=== PATIENT | male | born 1980 | race Caucasian/White ===

== ENCOUNTER 2017-05-20 22:25 | Emergency (ER) | payer SELFPAY ==
[2017-05-20 22:33] VITALS: BP 132/90; PULSE 105; TEMP 97.8; BMI 44.7
--- NOTE | 2017-05-20 22:39 | PDOC ---
History of Present Illness - General Chief Complaint: Pain, Acute Stated Complaint: PAIN RIGHT ABDOMEN X 3 MONTHS Time Seen by Provider: 05/20/17 22:32 - History of Present Illness Initial Comments: This 36-year-old man, morbidly obese but without other medical issues, presents with exacerbation of right-sided abdominal pain. Patient states that he has had this pain intermittently for the last 3 months. Today, he lifted a several very heavy pieces of luggage while use helping someone leaving on vacation. He then noted the pain in the right mid abdomen. Subsequent to this, he did not notice change in the pain with movement or position. 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 No history of specific trauma to the area. He denies nausea/vomiting, fever/chills, constipation/diarrhea. He has not had hematuria/dysuria/urinary frequency. Past History - Past Medical History Allergies/Adverse Reactions: Allergies Allergy/AdvReac Type Severity Reaction Status Date / Time No Known Allergies Allergy Verified 05/20/17 22:26 Home Medications: Ambulatory Orders NK [No Known Home Medication] 05/20/17 Asthma: (CHILDHOOD) Other medical history: DENIES - Family Disease History Family Disease History: Diabetes: Father, Mother - Immunization History Immunization Up to Date: Yes - Psycho/Social/Smoking Cessation Hx Anxiety: No Suicidal Ideation: No Smoking Status: No Smoking History: Never smoked Have you smoked in the past 12 months: No Number of Cigarettes Smoked Daily: 0 Cigars Per Day: 0 Information on smoking cessation initiated: No Hx Alcohol Use: No Drug/Substance Use Hx: No Substance Use Type: None Review of Systems - Review of Systems Able to Perform ROS?: Yes Comments:: 12 point review of systems is negative except for what is noted in the history of present illness *Physical Exam - Vital Signs Last Vital Signs Temp Pulse Resp BP Pulse Ox 97.8 F 105 H 16 132/90 100 05/20/17 22:28 05/20/17 22:28 05/20/17 22:28 05/20/17 22:28 05/20/17 22:28 - Physical Exam Comments: GENERAL: Adult male, morbidly obese, alert and oriented 3, in no acute distress HEAD: Normal with no signs of trauma. EYES: PERRLA, EOMI, sclera anicteric, conjunctiva clear. ENT: Ears normal, nares patent, oropharynx clear without exudates. Dry mucous membranes. NECK: Normal range of motion, supple without lymphadenopathy, JVD, or masses. LUNGS: Breath sounds equal, clear to auscultation bilaterally. No wheezes, and no crackles. HEART:Regular rate and rhythm, normal S1 and S2 without murmur, rub or gallop. ABDOMEN:.normal bowel sounds; protuberant, soft No guarding or rebound.No masses No distention. Minimal tenderness on deep palpation of the right tay- umbilical area; no distinct hernia palpated EXTREMITIES: Normal range of motion, no edema. No clubbing or cyanosis. No erythema, or tenderness. NEUROLOGICAL: Cranial nerves II through XII grossly intact. Normal speech. No focal neurological deficits. MUSCULOSKELETAL: Back non-tender to palpation, no CVA tenderness SKIN: Warm, Dry, normal turgor, no rashes or lesions noted. ED Treatment Course - LABORATORY CBC & Chemistry Diagram: 05/20/17 22:45 05/20/17 22:45 Progress Note - Progress Note Progress Note: CBC and chemistry profile was evaluated in this patient with intermittent right sided abdominal pain and minimal tenderness on exam. Laboratory evaluation is essentially normal (except for mildly decreased potassium)6 Results discussed with the patient. Although it is unlikely that there is any serious intra-abdominal or abdominal wall process ongoing, he should return to the emergency room if he has worsening pain. Meanwhile, he should attempt to avoid excessive lifting/pushing /pulling heavy material He should follow-up with his general doctor, Dr. Ochoa within the next 5 days He was also given follow-up referral information for Dr. Carmichael, general surgeon with whom he should follow-up within the next week *DC/Admit/Observation/Transfer Diagnosis at time of Disposition: Abdominal wall strain Qualifiers: Encounter type: initial encounter Qualified Code(s): S39.011A - Strain of muscle, fascia and tendon of abdomen, initial encounter - Discharge Dispostion Disposition: HOME Condition at time of disposition: Stable - Referrals Referrals: Sarita Ochoa MD [Staff Physician] - Juvenal Carmichael MD [Staff Physician] - - Patient Instructions Printed Discharge Instructions: Abdominal Muscle Strain Additional Instructions: Drink plenty of fluids Avoid lifting heavy objects as much as possible Ibuprofen/acetaminophen/naproxen as needed for pain Follow-up with Dr. Ochoa within 5 days Follow-up with general surgeon (Dr. Carmichael) within 1 week Return to ER if you have persistent, severe pain or develop vomiting/fever
[2017-05-20 22:49] LABS: PH,URINE 5.5 (4.5-8); URINE APPEARANCE Clear; URINE BILIRUBIN Negative (NEGATIVE); URINE BLOOD Negative (NEGATIVE); URINE GLUCOSE (UA) Negative (NEGATIVE); URINE KETONE 1+ (NEGATIVE); URINE LEUK ESTERASE Negative (NEGATIVE); URINE NITRITE Negative (NEGATIVE); URINE PROTEIN Negative (NEGATIVE); URINE UROBILINOGEN 1.0 E.U/dl (0.2-1.0)
[2017-05-20 22:51] LABS: URINE COLOR YELLOW
[2017-05-20 22:56] LABS: BASOPHIL 2.1 % (0-2.0); EOSINOPHIL 1.4 % (0-4.5); MCHC 33.9 g/dl (32.0-35.9); MEAN CELL VOLUME 85.5 fl (80-96); MEAN PLT VOLUME 10.9 fl (7.5-11.1); NEUTROPHILS 54.5 % (42.8-82.8); PLATELET COUNT 174 K/MM3 (134-434); RDW 12.4 % (11.9-15.9); WHITE BLOOD COUNT 9.6 K/mm3 (4.0-10.8)
[2017-05-20 23:12] LABS: ALBUMIN 4.8 g/dl (3.5-5.0); ALK PHOS 55 U/L (32-92); ANION GAP 5 (8-16); BILIRUBIN,TOTAL 0.4 mg/dl (0.2-1.0); CALCIUM 9.1 mg/dl (8.4-10.2); CO2 26 mmol/L (22-28); CREATININE 1.1 mg/dl (0.6-1.3); GLUCOSE,RANDOM 109 mg/dl (74-106); SGOT/AST 31 U/L (10-42); SGPT/ALT 56 U/L (10-40); TOT PROT 8.1 g/dl (6.4-8.3)
== END 2017-05-20 23:57 | disposition home or self-care (01) ==
LOC: FER 22:25
DX: S39.011A Strain of muscle, fascia and tendon of abdomen, initial encounter (principal); X58.XXXA Exposure to other specified factors, initial encounter; Y93.89 Activity, other specified; Y92.9 Unspecified place or not applicable; E66.01 Morbid (severe) obesity due to excess calories; Z68.42 Body mass index [BMI] 45.0-49.9, adult
CPT/HCPCS: 36415; 80053; 81003; 85025; 99281-25

== ENCOUNTER 2018-12-04 09:47 | Emergency (ER) | payer OTHER ==
[2018-12-04 09:53] VITALS: BMI 47.5
[2018-12-04] MEDS ORDERED: KETOROLAC TROMETHAMINE 15 MG/ML VIAL IM ONE (10:20)
[2018-12-04] MEDS ORDERED: ACETAMINOPHEN 500 MG TABLET (FP) PO ONE (10:20)
--- NOTE | 2018-12-04 10:21 | PDOC ---
History of Present Illness - General Chief Complaint: Cold Symptoms Stated Complaint: COUGH Time Seen by Provider: 12/04/18 09:48 - History of Present Illness Initial Comments: 12/04/18 10:21 38-year-old male with a history of asthma (no intubations or admissions) presents emergency Department with 3 days of non productive cough, diffuse body aches, fevers and chills, nasal congestion, and poor appetite. Patient reports his son was diagnosed with a virus a few days ago and has been taking TheraFlu for his symptoms. Patient has not measured his temperature at home. Pt has been taking nyquil cold and flu, as well as honey for his symptoms without palliation. Pt also has a sick contact at work. Denies any headaches, stiff neck , rashes, sore throat, ear pain, chest pain, shortness of breath, abdominal pain , nausea/vomiting/diarrhea, lower extremity edema, urinary frequency, urgency or dysuria. Past History - Past Medical History Allergies/Adverse Reactions: Allergies Allergy/AdvReac Type Severity Reaction Status Date / Time No Known Allergies Allergy Verified 12/04/18 09:48 Home Medications: Ambulatory Orders Oseltamivir Phosphate [Tamiflu -] 75 mg PO BID #10 capsule 12/04/18 Asthma: (CHILDHOOD) COPD: No - Family Disease History Family Disease History: Diabetes: Father, Mother - Immunization History Immunization Up to Date: Yes - Suicide/Smoking/Psychosocial Hx Smoking Status: No Smoking History: Former smoker Have you smoked in the past 12 months: No Number of Cigarettes Smoked Daily: 0 If you are a former smoker, when did you quit?: 2000 Cigars Per Day: 0 Information on smoking cessation initiated: No Hx Alcohol Use: No Drug/Substance Use Hx: No Substance Use Type: None Review of Systems - Review of Systems Comments:: 12/04/18 10:23 GENERAL/CONSTITUTIONAL: +fever and chills. No weakness. HEAD, EYES, EARS, NOSE AND THROAT: No change in vision. No ear pain or discharge. No sore throat. GASTROINTESTINAL: No nausea, vomiting, diarrhea or constipation. GENITOURINARY: No dysuria, frequency, or change in urination. CARDIOVASCULAR: No chest pain or shortness of breath. RESPIRATORY: +cough, no wheezing, or hemoptysis. MUSCULOSKELETAL: +diffuse bodyaches No neck or back pain. SKIN: No rash NEUROLOGIC: No headache, vertigo, loss of consciousness, or change in strength/ sensation. ENDOCRINE: No increased thirst. No abnormal weight change. HEMATOLOGIC/LYMPHATIC: No anemia, easy bleeding, or history of blood clots. ALLERGIC/IMMUNOLOGIC: No hives or skin allergy. *Physical Exam - Vital Signs Last Vital Signs Temp Pulse Resp BP Pulse Ox 101.5 F H 106 H 20 135/84 98 12/04/18 09:47 12/04/18 09:47 12/04/18 09:47 12/04/18 09:47 12/04/18 09:47 - Physical Exam Comments: 12/04/18 10:24 GENERAL: Awake, alert, and fully oriented, in no acute distress EYES: PERRLA, EOMI, sclera anicteric, conjunctiva clear ENT: Auricles normal inspection, +clear nasal DC, oropharynx with erythema but no exudates. Uvula midline. Moist mucosa NECK: Normal ROM, supple, no lymphadenopathy, JVD, or masses LUNGS: Breath sounds equal, clear to auscultation bilaterally. No wheezes, and no crackles HEART: Regular rate and rhythm, normal S1 and S2, no murmurs, rubs or gallops ABDOMEN: Soft, nontender, normoactive bowel sounds. No guarding, no rebound. No masses EXTREMITIES: Normal range of motion, no edema. No cords, erythema, or tenderness NEUROLOGICAL: Normal speech, cranial nerves intact, equal strength and sensation SKIN: Warm, Dry, normal turgor, no rashes or lesions noted. Moderate Sedation - Procedure Monitoring Vital Signs: Procedure Monitoring Vital Signs Temperature 101.5 F H 12/04/18 09:47 Pulse Rate 106 H 12/04/18 09:47 Respiratory Rate 20 12/04/18 09:47 Blood Pressure 135/84 12/04/18 09:47 O2 Sat by Pulse Oximetry (%) 98 12/04/18 09:47 Medical Decision Making - Medical Decision Making 12/04/18 10:26 38yo M hx asthma presents to the ED with cough, runny nose, body aches, anorexia consistent with viral syndrome, possibly influenza. Pt febrile to 101 in the ED with tachycardia to 106. Pt non toxic appearing with clear lungs. Plan to treat with IM toradol and tylenol for bodyaches/fever and recheck vitals. Flu swab sent. If positive, will treat given hx asthma. 12/04/18 11:25 Flu + Rpt temp 100.1, HR 91 Will treat with tamiflu work note given pt to f/u with Dr. Ferrara in 2-3 days I discussed the physical exam findings, ancillary test results and final diagnoses with the patient. I answered all of the patient's questions. The patient was satisfied with the care received and felt comfortable with the discharge plan and treatment plan. The patient will call their primary care physician within 24 hours to arrange follow-up and will return to the Emergency Department with any new, persistent or worsening symptoms. *DC/Admit/Observation/Transfer Diagnosis at time of Disposition: Influenza, Cough, Myalgia - Discharge Dispostion Disposition: HOME Condition at time of disposition: Stable Decision to Admit order: No - Prescriptions Prescriptions: Oseltamivir Phosphate [Tamiflu -] 75 mg PO BID #10 capsule - Referrals - Patient Instructions Printed Discharge Instructions: DI for Influenza -- Adult Additional Instructions: You have the flu. Take the tamiflu twice a day. Take tylenol and or motrin every 6 hours as needed for body aches. Do not take motrin within 6 hours of this ED visit. Follow up with Dr. Ferrara within 2-3 days Do not take more than 4000mg of tylenol per day REturn to the emergency department if you have any new, worsening, or concerning symptoms - Post Discharge Activity Forms/Work/School Notes: Back to Work - Attestations Physician Attestion: 12/04/18 11:27 I, Dr. Vijay Ramirez MD, attest that this document has been prepared under my direction and personally reviewed by me in its entirety. I further attest, that it accurately reflects all work, treatment, procedures and medical decision -making performed by me.
[2018-12-04] MEDS ORDERED: KETOROLAC TROMETHAMINE 30 MG/1 ML VIAL ONE (10:22)
[2018-12-04] MEDS ORDERED: ACETAMINOPHEN 500 MG TABLET (FP) ONE (10:22)
[2018-12-04 11:14] VITALS: BP 114/85; PULSE 91; TEMP 100.1
== END 2018-12-04 11:39 | disposition home or self-care (01) ==
LOC: FER 09:47
PROC: 3E0233Z Introduction of Anti-inflammatory into Muscle, Percutaneous Approach (ICD-10-PCS; principal; 2018-12-04)
DX: J11.1 Influenza due to unidentified influenza virus with other respiratory manifestations (principal); R05 Cough; M79.10 Myalgia, unspecified site; J45.909 Unspecified asthma, uncomplicated; Z87.891 Personal history of nicotine dependence
CPT/HCPCS: 87804; 99282-25

== ENCOUNTER 2022-04-16 06:51 | Emergency (ER) | payer BC, OTHER ==
[2022-04-16 07:16] VITALS: BP 145/84; PULSE 94; TEMP 98.4; BMI 54.2
[2022-04-16] MEDS ORDERED: DIPHTH,PERTUSS(ACELL),TET 0.5 ML DISP.SYRIN IM ONE ×2 (08:06→08:14)
== END 2022-04-16 08:18 | disposition home or self-care (01) ==
LOC: JER 06:51
PROC: 3E0234Z Introduction of Serum, Toxoid and Vaccine into Muscle, Percutaneous Approach (ICD-10-PCS; principal; 2022-04-16)
DX: S80.861A Insect bite (nonvenomous), right lower leg, initial encounter (principal); L03.115 Cellulitis of right lower limb; W57.XXXA Bitten or stung by nonvenomous insect and other nonvenomous arthropods, initial encounter
CPT/HCPCS: 90715; 99284-25

== ENCOUNTER 2025-07-04 11:24 | Emergency (ER) | payer SELFPAY ==
[2025-07-04 11:30] VITALS: BP 144/91; PULSE 96; RESP 20; TEMP 98.1; BMI 51.5
[2025-07-04 12:25] LABS: EPI CELLS 2 /uL (0-25.1); HYALINE CASTS 1 /uL (0-3.1); URINE APPEARANCE CLOUDY; URINE BACTERIA >9,000 /uL (0-1359); URINE BILIRUBIN 1+ (NEGATIVE); URINE COLOR DK YELLOW; URINE GLUCOSE (UA) NEGATIVE (NEGATIVE); URINE KETONE TRACE (NEGATIVE); URINE LEUK ESTERASE 2+ (NEGATIVE); URINE NITRITE POSITIVE (NEGATIVE); URINE PROTEIN 2+ (NEGATIVE); URINE RBC 22 /uL (0-23.9); URINE UROBILINOGEN 2.0 mg/dL (0.2-1.0); URINE WBC 1499 /uL (0-25.8)
[2025-07-04 13:19] LABS: YEAST NONE SEEN (NEGATIVE)
== END 2025-07-04 12:42 | disposition home or self-care (01) ==
LOC: JERFT 11:24
DX: N39.0 Urinary tract infection, site not specified (principal); B96.89 Other specified bacterial agents as the cause of diseases classified elsewhere; R35.0 Frequency of micturition; R39.15 Urgency of urination
CPT/HCPCS: 81003; 82962; 87086; 99283-25